=== PATIENT | female | born 1980 | race Caucasian/White ===

== ENCOUNTER 2023-01-14 20:02 | Emergency (ER) | payer MEDICAID, SELFPAY ==
--- NOTE | ~2023-01-14 | XR_ITS ---
EXAMINATION: XR CHEST CLINICAL INFORMATION: Dyspnea. COMPARISON: None available. TECHNIQUE: 2 views of the chest were obtained. FINDINGS: The patient is mildly rotated to the right. The lungs are well expanded. No evidence of focal consolidation, pleural effusion, pulmonary edema, or pneumothorax. The cardiomediastinal silhouette is within normal limits. No acute osseous abnormalities. XR/XR chest 2V IMPRESSION: No radiographic evidence of acute pulmonary abnormalities.
[2023-01-14 21:01] VITALS: BP 136/72; PULSE 100; RESP 22; TEMP 36.3; O2SAT 97; BMI 33.5
--- NOTE | 2023-01-14 21:22 | ED_ITS ---
HPI - SOB/Dyspnea General Chief Complaint: Upper Respiratory Symptoms Stated Complaint: asthma Time Seen by Provider: 01/14/23 21:20 Source: patient Mode of arrival: ambulatory Limitations: no limitations History of Present Illness HPI Narrative: Patient with history of asthma complaining of increased shortness of breath with dry cough for last 1 week with history of recurrent bronchitis for last 6 months has in his at home which she using without much response no fever no chills Related Data Previous Rx's Medication Instructions Recorded albuterol sulfate 90 mcg/actuation 2 puff inhalation Q4-6H PRN 01/15/23 aerosol inhaler (ProAir HFA) shortness of breath or wheezing #8.5 grams amoxicillin 875 mg-potassium 1 tab PO BID #20 tabs 01/15/23 clavulanate 125 mg tablet benzonatate 200 mg capsule 200 mg PO TID PRN cough #30 caps 01/15/23 prednisone 20 mg tablet 40 mg PO DAILY #10 tabs 01/15/23 Allergies Allergy/AdvReac Type Severity Reaction Status Date / Time No Known Allergies Allergy Verified 01/14/23 21:08 Review of Systems Review of Systems: Yes all other systems are reviewed and are negative [facility] Social History Social History Smoked in Last 30 Days: No Use of substances other than those prescribed or required for medical reasons: No Advance Directives: No Advance Directives Information Provided: No Physical Exam Vital Signs: Vital Signs: Last Vital Signs Temp 98.6 F 01/15/23 00:03 Pulse 109 H 01/15/23 00:19 Resp 18 01/15/23 00:19 BP 120/66 01/15/23 00:03 Pulse Ox 95 01/15/23 00:03 O2 Del Method Room Air 01/15/23 00:03 BMI result Body Mass Index 33.5 Appearance: Alert. Oriented X3. No acute distress. Eyes: PERRLA, No Nystagmus ENT: Pharynx normal. Oral Mucosa moist hoarse voice Neck: Normal inspection. Neck supple. CVS: Normal heart rate and rhythm. Pulses normal. Respiratory: Moderate respiratory distress. Equal air entry bilateral, bilateral wheezing++ Abdomen: Soft and nontender. Bowel sounds are present, no mass palpable, no CVA tenderness Skin: Skin warm and dry. Normal skin color. Normal skin turgor. Extremities: No lower extremity edema. No calf tenderness Neuro: Oriented X 3. No motor deficit. No sensory deficit.No cerebellar signs , cranial nerves II-XII intact Medications Administered Discontinued Medications Generic Name Dose Route Start Last Admin Trade Name Cristofer PRN Reason Stop Dose Admin Albuterol Sulfate 7.5 mg 01/15/23 00:02 01/15/23 00:18 Albuterol Sulfate (0.083%) 2.5 Mg/3 Ml Vial.Neb INHALE 01/15/23 00:03 7.5 mg ONCE ONE Administration Albuterol Sulfate 2.5 mg/ 0 mg 01/14/23 21:34 01/14/23 21:43 Albuterol/Ipratropium 3 ml INHALE 01/14/23 21:35 1 each ONCE ONE Administration Magnesium Sulfate 2 gm in 50 mls @ 25 mls/hr 01/14/23 21:34 01/14/23 22:23 Magnesium Sulfate/H2o IV 01/14/23 23:33 Infused ONCE ONE Infusion Methylprednisolone Sodium Succinate 125 mg 01/14/23 21:34 01/14/23 22:01 Methylprednisolone Sod Succ 125 Mg/2 Ml Vial IVPUSH 01/14/23 21:35 125 mg ONCE ONE Administration Medical Decision Making Medical Decision Making [facility] Narrative: Patient with recurrent bronchitis labs are stable chest x-ray negative will discharge patient home on albuterol inhaler and prednisone and give a course of Augmentin Lab Data [facility] Lab Attestation statement: I reviewed the patient's lab results. 01/14/23 21:54 01/14/23 21:54 Labs: Lab Results 01/14/23 01/14/23 01/14/23 Range/Units 21:12 21:54 21:54 WBC 11.2 H (4.8-10.8) X10*3/uL RBC 4.04 L (4.20-5.50) X10*6/uL Hgb 12.6 (12.0-16.0) g/dl Hct 38.3 (37.0-47.0) % MCV 94.8 (80.0-98.0) fL MCH 31.2 (27.0-33.0) pg MCHC 32.9 (31.0-35.0) g/dl RDW 13.1 (11.0-16.0) % Plt Count 434 H (160-400) X10*3/uL MPV 9.7 (9.4-12.3) fL Immature Gran % (Auto) 0.2 (0.0-0.4) % Neut % (Auto) 59.3 (45-73) % Lymph % (Auto) 31.1 (20-40) % Z[place]ata % (Auto) 6.9 (2-11) % Eos % (Auto) 2.0 (0-4) % Baso % (Auto) 0.5 (0-2) % Lymph # (Auto) 3.5 (1.2-4.9) X10*3/uL [place]ata # (Auto) 0.8 (0.1-1.2) X10*3/uL Eos # (Auto) 0.2 (0.0-0.4) X10*3/uL Baso # (Auto) 0.1 (0.0-0.2) X10*3/uL Abs Immat Gran (auto) 0.02 (0.00-0.03) X10*3/uL Absolute Neuts (auto) 6.6 (2.0-8.3) x10*3/uL Absolute Nucleated RBC 0.000 (0.0-0.012) X10*3/uL Nucleated RBC % (auto) 0.0 (0.0-0.2) /100WBC Sodium 137 (135-145) mmol/L Potassium 4.1 (3.3-5.1) mmol/L Chloride 104 (96-108) mmol/L Carbon Dioxide 23 (22-29) mmol/L Anion Gap 14 (12-20) BUN 17 H (9-16) mg/dL Creatinine 0.80 (0.5-1.4) mg/dL Estim Creat Clear Calc 92.5 Estimated GFR > 60 Random Glucose 102 (60-115) mg/dL Calcium 9.8 (8.4-10.2) mg/dL COVID-19 (DENIAS) Negative (Negative) COVID-19 Clin Com See Note Discharge Plan Discharge Clinical Impression: Bronchitis Patient Disposition: Home, Self-Care Instructions: Acute Bronchitis (ED) Additional Instructions: Continues use your inhaler 2 puffs every 4-6 hour as needed Prednisone as prescribed Antibiotic and cough drop as prescribed Follow-up with the PCP if not better Contin?e usando rush inhalador 2 inhalaciones cada 4-6 horas seg?n sea necesario Prednisona seg?n lo prescrito Antibi?carmelo y pastillas para la tos seg?n lo prescrito Seguimiento con el PCP si no mejor Prescriptions: New benzonatate 200 mg capsule 200 mg PO TID PRN (Reason: cough) Qty: 30 0RF prednisone 20 mg tablet 40 mg PO DAILY Qty: 10 0RF albuterol sulfate [ProAir HFA] 90 mcg/actuation HFA aerosol inhaler 2 puff inhalation Q4-6H PRN (Reason: shortness of breath or wheezing) Qty: 8.5 0RF amoxicillin-pot clavulanate 875-125 mg tablet 1 tab PO BID Qty: 20 0RF Print Language: Yi
[2023-01-14 21:34] LABS: COVID-19 Test Negative (Negative); IDNOW Serial# BCCEAD1C
[2023-01-14 21:46] VITALS: PULSE 115; RESP 24; O2SAT 98
[2023-01-14 21:58] LABS: MANUAL DIFF FLAG NO
[2023-01-14] MEDS: methylPREDNISolone Sod Succ 125 MG/2 ML VIAL IVPUSH (22:01)
[2023-01-14] MEDS: Magnesium Sulfate/H2O 2 GM/50 ML PIGGYBACK IV (22:03)
[2023-01-14 22:08] VITALS: PULSE 126; RESP 22; O2SAT 98; O2SAT 99
[2023-01-14 22:09] LABS: Basophils Absolute Auto 0.1 X10*3/uL (0.0-0.2); Basophils Percent Auto 0.5 % (0-2); Eosinophils Absolute Auto 0.2 X10*3/uL (0.0-0.4); Hematocrit 38.3 % (37.0-47.0); Hemoglobin 12.6 g/dl (12.0-16.0); Imm Gran Abs Auto 0.02 X10*3/uL (0.00-0.03); Imm Gran Pct Auto 0.2 % (0.0-0.4); Lymphocytes Absolute Auto 3.5 X10*3/uL (1.2-4.9); Lymphocytes Percent Auto 31.1 % (20-40); Mean Corpuscular HGB Conc 32.9 g/dl (31.0-35.0); Mean Corpuscular Hemoglobin 31.2 pg (27.0-33.0); Mean Corpuscular Volume 94.8 fL (80.0-98.0); Mean Platelet Volume 9.7 fL (9.4-12.3); Monocytes Absolute Auto 0.8 X10*3/uL (0.1-1.2); Monocytes Percent Auto 6.9 % (2-11); Neutrophils Absolute Auto 6.6 x10*3/uL (2.0-8.3); Neutrophils Percent Auto 59.3 % (45-73); Platelet Count 434 X10*3/uL (160-400); Red Blood Count 4.04 X10*6/uL (4.20-5.50); Red Cell Distribution Width 13.1 % (11.0-16.0); White Blood Count 11.2 X10*3/uL (4.8-10.8)
[2023-01-14 22:19] VITALS: BP 110/58; PULSE 117; RESP 16; TEMP 37.2; O2SAT 97
--- NOTE | 2023-01-14 22:21 | PC.NURSE ---
pt a&ox4, visible increased resp effort, breathing treatment running, pt reports worsening symptoms for 1 1/2 weeks, 20G IV placed left AC, medicated per OCT. no new orders at this time.
[2023-01-14 22:34] LABS: Anion Gap 14 (12-20); Blood Urea Nitrogen 17 mg/dL (9-16); Calcium 9.8 mg/dL (8.4-10.2); Carbon Dioxide 23 mmol/L (22-29); Chloride 104 mmol/L (96-108); Creatinine Clr Calc Pharmacy 92.5; Estimated Glomerular Filt Rate > 60; Glucose Random 102 mg/dL (60-115); Potassium 4.1 mmol/L (3.3-5.1); Sodium 137 mmol/L (135-145)
[2023-01-15 00:03] VITALS: BP 120/66; PULSE 108; RESP 16; TEMP 37; O2SAT 95
[2023-01-15] MEDS: Albuterol Sulfate (0.083%) 2.5 MG/3 ML VIAL.NEB 7.5 MG INHALE (00:18)
[2023-01-15 00:19] VITALS: PULSE 109; RESP 18; O2SAT 95
[2023-01-15] MEDS: Amoxicillin/Potassium Clav 875 MG TABLET PO (01:30)
[2023-01-15 01:39] VITALS: BP 152/65; PULSE 136; RESP 16; TEMP 36.3; O2SAT 98
== END 2023-01-15 01:44 | disposition home or self-care (01) ==
PROVIDERS: Emergency Provider Internal Medicine
DX: J40 Bronchitis, not specified as acute or chronic (principal); R06.02 Shortness of breath; Z20.822 Contact with and (suspected) exposure to COVID-19
CPT/HCPCS: 36415; 71046; 80048; 85025; 87635; 94640; 96365; 96375; 99284; 99285; J2930; J3475